=== PATIENT | male | born 1975 ===

== ENCOUNTER → 2016-11-02 | Outpatient (CLI) | payer OTHER ==
--- NOTE | 2016-11-02 14:19 | DIAGNOSTIC IMAGING REPORT ---
RIGHT NECK ULTRASONOGRAPHY CLINICAL HISTORY: Right neck mass COMPARISON STUDY: No previous studies for comparison. FINDINGS: There is an indeterminate lobulated hypoechoic 1 cm mass in the right retroauricular region. Clinical follow-up is recommended. If this mass persists, fine-needle aspiration should be obtained in follow-up IMPRESSION: Indeterminate lobulated 1 cm hypoechoic mass in the right retroauricular region Electronically signed by: Evaristo Zhou M.D. 11/02/2016 2:17 PM Dictated Date/Time: 11/02/2016 2:14 PM
[2016-11-02 17:03] LABS: BASO % 0.7 %; BASO ABS # 0.08 K/uL (0-0.2); COMPLETE YES; EOS % 3.2 %; HEMATOCRIT 39.7 % (42-52); IG% 0.2 %; LYMPH % 38.5 %; LYMPH ABS # 4.48 K/uL (1.2-3.4); MEAN CELL VOLUME 78.1 fL (80-100); MEAN CORPUSCULAR HGB CONC 34.5 g/dl (32-36); MEAN PLATELET VOLUME 11.9 fL (7.4-10.4); MONO % 5.4 %; PLATELET COUNT 382 K/uL (130-400); RED BLOOD COUNT 5.08 M/uL (4.7-6.1); WHITE BLOOD COUNT 11.65 K/uL (4.8-10.8)
[2016-11-02 17:10] LABS: BLOOD UREA NITROGEN 14 mg/dl (7-18); BUN/CREATININE RATIO 16.9 (10-20); CALCIUM 9.3 mg/dl (8.5-10.1); CARBON DIOXIDE 26 mmol/L (21-32); CHLORIDE 107 mmol/L (98-107); CREATININE 0.85 mg/dl (0.60-1.40); GLUCOSE 123 mg/dl (70-99); POTASSIUM 3.6 mmol/L (3.5-5.1); SODIUM 142 mmol/L (136-145)
== END | disposition home or self-care (01) ==
LOC: C.ULTR 13:15
PROVIDERS: ATTEND Nurse Practitioner Adult Health
DX: R19.00 Intra-abdominal and pelvic swelling, mass and lump, unspecified site (principal); R22.0 Localized swelling, mass and lump, head